=== PATIENT | male | born 1955 | race Caucasian/White ===

== ENCOUNTER 2017-03-21 11:09 | Emergency (ER) | payer BC ==
[2017-03-21] MEDS ORDERED: Bacitracin Oint 1 GM U/D Packet TOP ONE (12:22)
[2017-03-21] MEDS ORDERED: Diphtheria,Pertussis(Acell),Tetanus Vaccine 0.5 ML SDV IM ONE (12:22)
--- NOTE | 2017-03-21 13:39 | EDM.PDOC ---
Scribed by Mary Shaffer 03/21/17 [id number] for Kings Suresh MD ED HPI GENERAL MEDICAL PROBLEM - General Chief Complaint: Skin Complaint Stated Complaint: INFECTED ELBOW, [id number] Time Seen by Provider: 03/21/17 12:10 Source of Information: Reports: Patient, RN, RN Notes Reviewed History Limitations: Reports: No Limitations - History of Present Illness INITIAL COMMENTS - FREE TEXT/NARRATIVE: Patient presents with complaint of left elbow swelling x2 days. Denies injury, drainage, decreased range of motion, fevers or chills. He did notice last night that it became red and warm. Onset Date: 03/19/17 Duration: Getting Worse Location: Reports: Upper Extremity, Left Quality: Reports: Ache Severity: Moderate Improves with: Reports: None Worsens with: Reports: None Associated Symptoms: Reports: No Other Symptoms - Related Data Allergies Allergy/AdvReac Type Severity Reaction Status Date / Time No Known Allergies Allergy Verified 03/21/17 11:57 Home Meds: Home Meds Apixaban [Eliquis] 5 mg PO BID 03/21/17 [History] Sotalol HCl [Sotalol] 40 mg PO BID 03/21/17 [History] Past Medical History Cardiovascular History: Reports: Arrhythmia, Other (See Below) (paroxsymal A- fib.) - Past Surgical History Cardiovascular Surgical History: Reports: Cardiac Ablation Social & Family History - Family History Family Medical History: Noncontributory - Tobacco Use Smoking Status *Q: Never Smoker Second Hand Smoke Exposure: No - Caffeine Use Caffeine Use: Reports: None - Alcohol Use Days Per Week of Alcohol Use: 7 Number of Drinks Per Day: 1 Total Drinks Per Week: 7 - Recreational Drug Use Recreational Drug Use: No ED ROS GENERAL - Review of Systems Review Of Systems: ROS reveals no pertinent complaints other than HPI. ED EXAM, SKIN/RASH Exam: See Below Exam Limited By: No Limitations General Appearance: Alert, WD/WN, No Apparent Distress Head: Atraumatic, Normocephalic Respiratory/Chest: No Respiratory Distress Cardiovascular: Regular Rate, Rhythm Extremities: Other (left posterior (olecranon) elbow with moderate fluctuant swelling, mildly tender with increased warmth and erythema measuring [id number] with a central 1cm subacute abrasion with small central pustular head. ) Neurological: Alert, Oriented, CN II-XII Intact, Normal Cognition, Normal Gait, Normal Reflexes, No Motor/Sensory Deficits Psychiatric: Normal Affect, Normal Mood ED SKIN PROCEDURES - Additional/Other Procedure(s) Other (Free Text) Procedure(s): Left elbow cleansed with sterile water and Hibiclens. An 18 kelsie needle used to open the pustular head and culture of purulent discharge was sent to lab. Course - Vital Signs Last Recorded V/S: Last Vital Signs Temp 36.1 C 03/21/17 11:58 Pulse 77 03/21/17 11:58 Resp 18 03/21/17 11:58 BP 88/69 L 03/21/17 11:58 Pulse Ox 97 03/21/17 11:58 - Orders/Labs/Meds Orders: Active Orders 24 hr Category Date Time Status Vaccines to be Administered [RC] PER UNIT ROUTINE Care 03/21/17 12:22 Active CULTURE WOUND [RM] Stat Lab 03/21/17 12:32 Received Meds: Medications Discontinued Medications Generic Name Dose Route Start Last Admin Trade Name Nish PRN Reason Stop Dose Admin Bacitracin 1 dose 03/21/17 12:22 03/21/17 12:29 Bacitracin Oint 1 Gm TOP 03/21/17 12:23 1 dose ONETIME ONE Administration Diphtheria/Tetanus/Acell Pertussis 0.5 ml 03/21/17 12:22 03/21/17 12:29 Adacel IM 03/21/17 12:23 0.5 ml .ONCE ONE Administration Departure - Departure Time of Disposition: 12:35 Disposition: Home, Self-Care 01 Condition: Good Clinical Impression: Septic olecranon bursitis of left elbow - Discharge Information Instructions: Elbow Bursitis, [id number] Referrals: Aurora Mojica PA [Primary Care Provider] - Forms: ED Department Discharge Additional Instructions: RX: Dicloxacillin 500mg. RX: Bactroban ointment Follow up in clinic next week for recheck. Return to ER if worse at any time. - My Orders Last 24 Hours: My Active Orders 03/21/17 12:22 Vaccines to be Administered [RC] PER UNIT ROUTINE 03/21/17 12:32 CULTURE WOUND [RM] Stat - Assessment/Plan Last 24 Hours: My Active Orders 03/21/17 12:22 Vaccines to be Administered [RC] PER UNIT ROUTINE 03/21/17 12:32 CULTURE WOUND [RM] Stat I have read and agree with the documentation that has been completed regarding this visit. By signing this record, I attest that the documentation was completed in my physical presence and is an accurate record of the encounter.
== END 2017-03-21 12:43 | disposition home or self-care (01) ==
LOC: DL.ED 11:09
DX: M70.22 Olecranon bursitis, left elbow (principal); S80.212A Abrasion, left knee, initial encounter; X58.XXXA Exposure to other specified factors, initial encounter; Y93.89 Activity, other specified; Z23 Encounter for immunization
CPT/HCPCS: 10060; 87070; 87077; 87186; 90471; 90715; 99283

== ENCOUNTER 2017-08-12 07:30 | Day surgery (SDC) | payer BC ==
[~2017-08-12 07:30] MED LIST: Dextrose 5%-0.45% NaCl 1,000 ML IV SCH; Sodium Chloride 0.9% 10 ML Syringe FLUSH PRN; Sodium Chloride 0.9% 10 ML Syringe FLUSH SCH; fentaNYL 100 MCG/2 ML SDV ONE
[2017-08-12] MEDS ORDERED: Midazolam 1 MG/ML 2 ML SDV ONE (08:12)
[2017-08-12] MEDS ORDERED: fentaNYL 100 MCG/2 ML SDV IV ONE ×2 (08:14→08:15)
[2017-08-12] MEDS ORDERED: Midazolam 1 MG/ML 2 ML SDV IV ONE ×6 (08:15→08:23)
--- NOTE | 2017-08-12 11:21 | OR ---
DATE: 08/12/2017 PROCEDURE: Total colonoscopy. INSTRUMENT USED: PCF-H180 AL Olympus video colonoscope. PREMEDICATIONS: Fentanyl 100 mcg intravenous, Versed 4 mg intravenous. Nasal O2 cannula. The procedure was done under pulse oximetry, BP recording, and monitor worker. INDICATION: The patient with FIT positive stools and anemia. Colonoscopic examination is done for detection of any polypoid lesions and removal, endoscopic hemostasis therapy if needed. DESCRIPTION OF PROCEDURE: Initial rectal exam was unremarkable. Rigid anoscopy was normal. The colonoscope was passed with ease up to the ileocecal area. Photographs were taken of the normal-appearing cecum identified by double-bulged ileocecal folds. No bleeding was noted from any of the visualized areas at the commencement of the examination. No stricture. No vascular ectasia. No large isolated ulcerations seen. No evidence of diffuse inflammatory bowel disease in the form of friability, contact bleeding, or ulcerations. No polyp or tumor mass identified. The bowel preparation was found to be adequate. Probing the proximal sides of folds and flexures, using adequate distention and clearing of the stool material, withdrawal of the scope was made. [id number] time over 6 minutes. No bleeding was noted from any of the visualized areas at the completion of examination. IMPRESSION: Normal study. The patient tolerated the procedure well. [facility] /[id number]
== END 2017-08-12 10:35 | disposition home or self-care (01) ==
LOC: DL.ENDO 07:30
PROVIDERS: ATTEND Internal Medicine Gastroenterology
DX: R19.5 Other fecal abnormalities (principal); D64.9 Anemia, unspecified
CPT/HCPCS: 45378; J7042; J2250; J3010

== ENCOUNTER 2017-09-15 06:00 | Day surgery (SDC) | payer BC ==
[~2017-09-15 06:00] MED LIST changes: -Sodium Chloride 0.9% 10 ML Syringe FLUSH SCH; -fentaNYL 100 MCG/2 ML SDV ONE
[2017-09-15] MEDS ORDERED: Midazolam 1 MG/ML 2 ML SDV IV ONE ×3 (06:01→07:21)
[2017-09-15] MEDS ORDERED: fentaNYL 100 MCG/2 ML SDV IV ONE ×3 (06:01→07:19)
[2017-09-15] MEDS ORDERED: fentaNYL 100 MCG/2 ML SDV ONE (06:13)
[2017-09-15] MEDS ORDERED: Midazolam 1 MG/ML 2 ML SDV ONE (06:13)
--- NOTE | 2017-09-15 08:36 | OR ---
DATE: 09/15/2017 PROCEDURES: Esophagogastroduodenoscopy and multiple pinch biopsies. INSTRUMENT USED: GIF-H180 Olympus video panendoscope. PREMEDICATIONS: No oral topical anesthesia used. Fentanyl 100 mcg intravenous, Versed 2 mg intravenous. The procedure was done under pulse oximetry, BP recording, and borderer. INDICATION: The patient with chronic anemia, positive FIT, and negative colonoscopic examination for bleeding areas. DESCRIPTION OF PROCEDURE: Esophagogastroduodenoscopy is performed for detection of any active erosive lesions. Malignancy also under consideration. H. pylori status to be determined. Endoscopic hemostasis therapy if needed. The scope was passed with ease. Adequate visualization of the esophagus was made from proximal to distal areas. No upper esophageal lesions identified. No distal esophageal stricture. No uphill or downhill esophageal varices. No Mary-Dempsey tear. No evidence of erosive esophagitis by Mar[place] criteria. No esophageal polyp or tumor mass identified. Z-line was seen at around 40 cm distal to the oral verge, configuration consistent with grade 1 by ZAP classification. No proximal gastric varices noted. Gastric fundus examination by retroflexion showed no polypoid lesions. No gastric ulcer, malignant mass, or vascular ectasia identified. Duodenal bulb showed no ulcer. Visualized second part of the duodenum was unremarkable. Multiple pinch biopsies were taken from the gastric antrum and proximal body and sent for PyloriTek test for H. pylori, and if negative in an hour, the tissue is to be sent for histopathology. No bleeding was noted from any of the visualized areas at the completion of examination. Photographs were taken of the duodenal bulb, gastric antrum, fundus, and distal esophagus. IMPRESSION: Normal study. The patient tolerated the procedure well. [facility] /[id number]
== END 2017-09-15 09:30 | disposition home or self-care (01) ==
LOC: DL.ENDO 06:00
PROVIDERS: ATTEND Internal Medicine Gastroenterology
DX: D64.9 Anemia, unspecified (principal); K31.89 Other diseases of stomach and duodenum; R19.5 Other fecal abnormalities
CPT/HCPCS: 43239; 87077; J7042; J2250; J3010